=== PATIENT | female | born 1960 | race Caucasian/White ===

== ENCOUNTER → 2019-05-17 | Outpatient (CLI) | payer BC ==
[~2019-05-17] MED LIST: REGADENOSON 0.4 MG/5 ML DISP.SYRIN. IV ONE
--- NOTE | 2019-05-17 16:35 | PCVCIMAG ---
APPROVED REPORT Study performed: 05/17/2019 08:28:03 EXAM: Comprehensive 2D, Doppler, and color-flow Echocardiogram Patient Location: Echo lab Status: routine BSA: 2.06 HR: 63 bpmBP: 130/90 mmHg Rhythm: NSR Other Information Study Quality: Adequate Risk Factors: Cardiac Risk Factors: Hyperlipidemia, HTN Indications Pre op Hip surgery 2D Dimensions IVSd: 13.11 (7-11mm)LVOT Diam: 17.59 (18-24mm) LVDd: 37.51 mm PWd: 12.95 (7-11mm)Ascending Ao: 34.48 (22-36mm) LVDs: 30.10 (25-40mm) Left Atrium: 36.89 (27-40mm) Aortic Root: 27.37 mm LV Single Plane 4CH: 54.18 % LV Single Plane 2CH: 69.77 % Volumes Left Atrial Volume (Systole) Single Plane 4CH: 31.91 mLSingle Plane 2CH: 35.59 mL LA ESV Index: 17.00 mL/m2 Aortic Valve AoV Peak Antony.: 1.09 m/s AO Peak Gr.: 4.71 mmHg Mitral Valve E/A Ratio: 1.2 MV Decel. Time: 184.51 ms MV E Max Antony.: 0.74 m/s MV A Antony.: 0.64 m/s IVRT: 107.27 ms TDI E/Lateral E': 10.57E/Medial E': 14.80 Medial E' Antony.: 0.05 m/s Lateral E' Antony.: 0.07 m/s Pulmonary Valve PV Peak Gr.: 2.41 mmHg Pulmonary Vein P Vein S: 0.55 m/sP Vein A: 0.48 m/s P Vein D: 0.35 m/sP Vein A Dur.: 86.5 msec P Vein S/D Ratio: 1.57 Left Ventricle The left ventricle is normal size. There is normal LV segmental wall motion. There is normal left ventricular wall thickness. Left ventricular systolic function is normal. The left ventricular ejection fraction is within the normal range. LVEF is 55-60%. Right Ventricle The right ventricle is normal size. The right ventricular systolic function is normal. Atria The left atrium size is normal. The right atrium size is normal. Aortic Valve The aortic valve is normal in structure. No aortic regurgitation is present. There is no aortic valvular stenosis. Mitral Valve The mitral valve is normal in structure. There is no mitral valve regurgitation noted. No evidence of mitral valve stenosis. Tricuspid Valve The tricuspid valve is normal in structure. There is no tricuspid valve regurgitation noted. Pulmonic Valve The pulmonary valve is normal in structure. There is no pulmonic valvular regurgitation. Great Vessels The aortic root is normal in size. IVC is normal in size and collapses >50% with inspiration. Pericardium There is no pericardial effusion. <Conclusion> The left ventricle is normal size. LVEF is 55-60%. The right ventricle is normal size. The left atrium size is normal. The aortic valve is normal in structure. There is no mitral valve regurgitation noted. There is no tricuspid valve regurgitation noted. The aortic root is normal in size. There is no pericardial effusion.
--- NOTE | 2019-05-17 16:50 | PCVCIMAG ---
APPROVED REPORT Imaging Protocol: Rest Tc-99m/Stress Tc-99m 1 day Study performed: 05/17/2019 09:15:11 Indication: Chest pain, Dyspnea, , Pre-Operative CV evaluation Patient Location: Out-Patient Stress Nurse: Gemini Johns RN, Bonnie Hunter RN GA Tech:JAYLYN [place] Ht: 5 ft 4 in Wt: 225 lbs BSA: 2.06 m2 HR: 61 bpm BP: 113/158 mmHg BMI: 38.6 Rhythm: Sinus Rhythm, nonspecific ST-T abnormalities Medical History Medical History: Age, Hyperlipidemia, HTN Medications: Ativan, Propranolol, Topamax, Benztropin, Saphris Allergies: No known drug allergies Exercise History: Sedentary Physical Disabilities: Hips Resting Data Rest SPECT myocardial perfusion imaging was performed in supine position 45 minutes following the intravenous injection of 12.9 mCi of Tc-99m Sestamibi. Time of rest injection: 0900 Date: 05/17/2019 Administration Route: IV Administration Site: Right Hand Pharmacologic Stress Pharmacologic stress test was performed by injecting Regadenoson 0.4 mg IV push over 10-15 seconds immediately followed by the intravenous injection of 45.4 mCi of Tc-99m Sestamibi. Time of stress injection: 1045 Date: 05/17/2019 Administration Route: IV Administration Site: Right Hand Gated Stress SPECT was performed 45 minutes after stress injection. The images were gated to evaluate regional wall motion and calculate left ventricular ejection fraction. Stress Test Details Stress Test: Pharmacologic stress testing performed using 0.4 mg of regadenoson per 5 mL given IV over 10 seconds. Reason for pharmacologic stress test: physical limitation. HRMax Heart Rate (APMHR): 159 bpm Resting HR: 61 bpmTarget HR (85% APMHR): 135 bpm Max HR Achieved: 85 bpm % of APMHR: 53 Recovery HR: 79 bpm BP Resting BP: 113/58 mmHg Max BP: 113/59 mmHg Recovery BP: 106/58 mmHg ECG Resting ECG: Sinus Rhythm, nonspecific ST-T abnormalities Stress ECG: Sinus Rhythm, nonspecific ST-T abnormalities Arrhythmia: None Recovery ECG: Sinus Rhythm, nonspecific ST-T abnormalities Clinical Reason for Termination: Completed protocol Stress Symptoms: Dyspnea, Chest tightness Symptoms resolved with caffeine. Stress ECG Conclusion ECG: Non-ischemic Study Quality Study: Good Study Data Post stress, the left ventricular ejection was 58%.. SSS: 12 SRS: 0 SDS: 12 TID = 1.19. Perfusion Medium sized area of moderate reversible ischemia involving the mid/basal anterolateral left ventricle consistent with a left anterior descending distribution. Wall Motion Normal left ventricular size and function with no regional wall motion abnormalities. Nuclear Conclusion Medium sized area of moderate reversible ischemia involving the mid/basal anterolateral left ventricle consistent with a left anterior descending distribution. Normal left ventricular size and function with no regional wall motion abnormalities. Post stress, the left ventricular ejection was 58%. No prior study available for comparison. Interpreted by: Tom Elliott MD Electronically Approved: 05/17/2019 15:28:34 <Conclusion> ECG: Non-ischemic
== END | disposition home or self-care (01) ==
LOC: PCVCIMAG 08:46
PROVIDERS: ATTEND Internal Medicine Cardiovascular Disease
DX: R07.9 Chest pain, unspecified (principal); R06.02 Shortness of breath; R00.0 Tachycardia, unspecified; R06.00 Dyspnea, unspecified; I10 Essential (primary) hypertension
CPT/HCPCS: 78452; 93017; 93306; A9500; J2785